=== PATIENT | male | born 1950 | race Caucasian/White ===

== ENCOUNTER 2016-09-16 15:14 | Emergency (ER) | payer OTHER ==
[~2016-09-16] VITALS: Ht 172.7 cm; Wt 111.3 kg
[2016-09-16 17:16] LABS: HEMATOCRIT 41.9 % (38.0-50.0); MCH 33.9 PG (29.0-34.0); MCV 91.7 FL (86-99); MEAN PLAT.VOLUME 9.5 uM^3 (9.0-12.4); PLATELET COUNT 189 K/uL (156-360); RBC DIS.WIDTH-CV 12.3 % (11.8-14.6); RBC DIS.WIDTH-SD 40.4 % (39-53); RED BLOOD COUNT 4.57 M/uL (4.00-5.50); WHITE BLOOD COUNT 6.5 K/uL (4.1-10.2)
[2016-09-16 17:32] LABS: CHLORIDE 106 mEq/L (99-109); POTASSIUM 4.4 mEq/L (3.7-5.4); SODIUM 139 mEq/L (136-147)
[2016-09-16 17:34] LABS: GLUCOSE 145 mg/dL (70-99)
[2016-09-16 17:35] LABS: ANION GAP 9 MEQ/L (2-14)
[2016-09-16 17:38] LABS: GFR ESTIMATE (CALCULATED) > 59 mL/min/; UREA NITROGEN (BUN) 18 mg/dL (9-23)
[2016-09-16] MEDS ORDERED: REGLAN5 MG PO (19:05)
[2016-09-16 20:07] VITALS: BP 143/90
== END 2016-09-16 20:08 | disposition home or self-care (01) ==
LOC: EME 15:14
PROVIDERS: Emergency Medicine
DX: R42 Dizziness and giddiness (principal); R26.81 Unsteadiness on feet
CPT/HCPCS: 70450; 80048; 85027; 99281; 99284